=== PATIENT | male | born 1955 | race Caucasian/White ===

== ENCOUNTER 2023-02-15 05:12 | Day surgery (SDC) | payer OTHER ==
[2023-02-08 12:49] VITALS: BMI 29.9
[2023-02-15] MEDS ORDERED: LIDOCAINE HCL/PF 1% SDV 5ML VIAL ONE (07:21)
[2023-02-15] MEDS ORDERED: DEXAMETHASONE SOD PHOSPHATE 10 MG/1 ML VIAL ONE (07:21)
[2023-02-15] MEDS ORDERED: ACETAMINOPHEN 500 MG TABLET (FP) PO PRN (07:45)
[2023-02-15 10:52] VITALS: RESP 20
[2023-02-15] MEDS ORDERED: ACETAMINOPHEN 500 MG TABLET (FP) ONE (11:46)
[2023-02-15 12:24] VITALS: BP 120/80; PULSE 72; TEMP 97
== END 2023-02-15 12:24 | disposition home or self-care (01) ==
LOC: JASU-SURG 05:12
PROVIDERS: ATTEND Pain Medicine Pain Medicine
PROC: 3E0R3BZ Introduction of Anesthetic Agent into Spinal Canal, Percutaneous Approach (ICD-10-PCS; 2023-02-15)
PROC: 3E0R33Z Introduction of Anti-inflammatory into Spinal Canal, Percutaneous Approach (ICD-10-PCS; principal; 2023-02-15 11:30)
DX: M54.16 Radiculopathy, lumbar region (principal); M48.061 Spinal stenosis, lumbar region without neurogenic claudication
CPT/HCPCS: 76000-TC-FY; J1100